=== PATIENT | male | born 1995 | race Caucasian/White ===

== ENCOUNTER 2016-08-24 18:54 | Emergency (ER) | payer BC ==
[2016-08-24 19:25] VITALS: BP 118/56
[2016-08-24] MEDS ORDERED: Tetracaine 0.5% OPTH.SOL 4 ML* 1 DROP BTL ONE (19:41)
[2016-08-24] MEDS ORDERED: BSS OPTH.SOL* BTL ONE (19:41)
[2016-08-24] MEDS ORDERED: Fluorescein Sodium TOPICAL* 1 MG TEST ONE (19:41)
[2016-08-24] MEDS ORDERED: Fluorescein Sodium TOPICAL* 1 MG TEST OPHTHALMIC ONE (19:41)
[2016-08-24] MEDS ORDERED: Tetracaine 0.5% OPTH.SOL 4 ML* 1 DROP BTL LEFT EYE ONE (19:41)
[2016-08-24] MEDS ORDERED: Eye Irrigation Solution 30 ML BOTTLE LEFT EYE ONE (19:42)
--- NOTE | 2016-08-24 20:18 | UC ---
Eye Complaint HPI - HPI Summary HPI Summary: FIVE DAYS AGO WHILE CUTTING [employer] GOT DEBRIS IN LEFT EYE. IRRITATION IN EYE WELL "BUMP" ON (LATERAL SCLERA OF) LEFT EYE. TWO DAYS AGO HAD OUTBREAK OF LESIONS ON LEFT LOWER LIP. - History of Current Complaint Chief Complaint: UCEye Stated Complaint: eye and lip Time Seen by Provider: 08/24/16 19:34 Hx Obtained From: Patient, Family/[employer] Onset/Duration: Gradual Onset, Lasting Days, Still Present Timing: Constant Severity Initially: Moderate Severity Currently: Mild Location of Injury: Conjunctiva, Sclera Character: Dull Aggravating Factor(s): Light, Blinking Alleviating Factor(s): Nothing Associated Signs And Symptoms: Negative: Photophobia, Vision Impairment Bilateral, Vision Impairment Right, Vision Impairment Left, Fever, Swelling - Risk Factors Penetrating Injury Risk Factor: Negative Globe Rupture Risk Factors: Negative Acute Glaucoma Risk Factors: Eye Inflammation, Eye Trauma Optic Artery Occlusion Risk Factors: Negative - Allergies/Home Medications Allergies/Adverse Reactions: Allergies Allergy/AdvReac Type Severity Reaction Status Date / Time No Known Allergies Allergy Verified 08/24/16 19:14 Home Medications: Home Medications Ibuprofen TAB* [Advil TAB*] 800 mg PO Q8H PRN 08/24/16 [History Confirmed ] PMH/Surg Hx/FS Hx/Imm Hx Previously Healthy: Yes Endocrine History Of: Denies: Diabetes, Thyroid Disease Cardiovascular History Of: Denies: Cardiac Disorders, Hypertension Respiratory History Of: Denies: COPD, Asthma GI/ History Of: Denies: Ulcer - Surgical History Surgical History: Yes Surgery Procedure, Year, and Place: dental 01/2016 - Family History Known Family History: Positive: None Negative: Cardiac Disease, Hypertension, Diabetes - Social History Occupation: Employed Full-time Lives: With Family Alcohol Use: None Substance Use Type: None Smoking Status (MU): Never Smoked Tobacco Type: Smokeless Tobacco Amount Used/How Often: 1-2 cans per week Cessation Counseling: Patient Advised to Stop Review of Systems Constitutional: Negative Skin: Rash - VESICULAR RASH ON LEFT LOWER LIP Eyes: Eye Redness ENT: Negative Respiratory: Negative Cardiovascular: Negative Gastrointestinal: Negative Genitourinary: Negative Motor: Negative Neurovascular: Negative Musculoskeletal: Negative Neurological: Negative Psychological: Negative All Other Systems Reviewed And Are Negative: Yes Physical Exam Triage Information Reviewed: Yes Appearance: Well-Appearing Vital Signs: Initial Vital Signs Temp 99.0 F 08/24/16 19:15 Pulse 74 08/24/16 19:15 Resp 16 08/24/16 19:15 BP 118/56 08/24/16 19:15 Pulse Ox 100 08/24/16 19:15 Eyes: Positive: Conjunctiva Inflamed - LEFT, Other: - FLUORESCIEN UPTAKE 2mm X 2mm AREA ON LATERAL SCLERA; ALSO SCANT UPTAKE 3OCLOCK TO 9OCLOCK IN INFERIOR CORNEA ENT Exam: Normal ENT: Positive: Normal ENT inspection, Hearing grossly normal, Pharynx normal, TMs normal Dental Exam: Normal Neck exam: Normal Respiratory Exam: Normal Respiratory: Positive: Chest non-tender, Lungs clear, Normal breath sounds, No respiratory distress Cardiovascular Exam: Normal Cardiovascular: Positive: RRR, No Murmur, Pulses Normal, Brisk Capillary Refill Abdominal Exam: Normal Musculoskeletal Exam: Normal Neurological Exam: Normal Psychological Exam: Normal Psychological: Positive: Normal Response To Family Skin Exam: Normal Eye Complaint Course/Dx - Differential Dx/Diagnosis Differential Diagnosis/HQI/PQRI: Conjunctivitis, Corneal Abrasion, Foreign Body , Keratitis, Other - NODULAR SCLERITIS Provider Diagnoses: LEFT CONJUNCTIVITIS; ORAL HERPES SIMPLEX; LEFT LATERAL SCLERITIS Discharge - Discharge Plan Condition: Stable Disposition: HOME Prescriptions: Erythromycin TOPICAL GEL* [Erythromycin OPTH OINT*] 1 applic TOPICAL TID #1 oint Valacyclovir HCl [Valtrex] 1,000 mg PO BID #12 tab Patient Education Materials: Corneal Abrasion (ED), Oral Herpes Simplex Virus Infections (ED), Conjunctivitis (ED) Referrals: [facility] [Outside] No Primary Care Phys,NOPCP [Primary Care Provider] - Hugo Barnes MD [Medical Doctor] - 4 Days
== END 2016-08-24 20:21 | disposition home or self-care (01) ==
LOC: UCCORT 18:54
DX: H10.9 Unspecified conjunctivitis (principal); B00.1 Herpesviral vesicular dermatitis; H15.092 Other scleritis, left eye; F17.220 Nicotine dependence, chewing tobacco, uncomplicated
CPT/HCPCS: 87529; 99212; A9270-GY; G0463

== ENCOUNTER 2016-09-27 20:42 | Emergency (ER) | payer BC ==
[2016-09-27 21:26] VITALS: BP 129/72
[2016-09-27] MEDS ORDERED: Naproxen TAB* 250 MG PO ONE (21:33)
[2016-09-27] MEDS ORDERED: Tetan/Diph/Pertus SYR(Tdap)* 0.5 ML SYR(BOOSTRIX) use SYR IM ONE (21:33)
--- NOTE | 2016-09-27 21:39 | UC ---
Laceration HPI - HPI Summary HPI Summary: The patient comes in today for: 1. Left elbow pain/laceration Onset: 8 hours ago. Palliative/provocative: Pressing and movement makes it worse. Quality: Ache. Region: Centered over the left elbow laceration. Severity: 9/10 Time: Constant. Associated symptoms: Event: While he was horsing around he threw his arm back and smacked it on the corner of the bed post. Numbness: None. He does not know when his last tetanus vaccine was given. * - History Of Current Complaint Chief Complaint: UCUpperExtremity Stated Complaint: LEFT ELBOW PUNCTURE WOUND Time Seen by Provider: 09/27/16 21:32 Hx Obtained From: Patient, Family/Log Marker - Allergies/Home Medications Allergies/Adverse Reactions: Allergies Allergy/AdvReac Type Severity Reaction Status Date / Time No Known Allergies Allergy Verified 09/27/16 21:26 PMH/Surg Hx/FS Hx/Imm Hx Previously Healthy: Yes - Surgical History Surgical History: Yes Surgery Procedure, Year, and Place: dental 01/2016 - Family History Known Family History: Negative: Cardiac Disease, Hypertension, Diabetes - Social History Occupation: Unemployed Alcohol Use: None Substance Use Type: None Smoking Status (MU): Never Smoked Tobacco Type: Smokeless Tobacco Amount Used/How Often: 1-2 cans per week Length of Time of Smoking/Using Tobacco: 5 YRS Review of Systems Constitutional: Negative Skin: Negative Eyes: Negative ENT: Negative Respiratory: Negative Cardiovascular: Negative Gastrointestinal: Negative Genitourinary: Negative Psychological: Negative All Other Systems Reviewed And Are Negative: Yes Physical Exam Triage Information Reviewed: Yes Appearance: Well-Appearing, No Pain Distress - He states that the pain is a 9/10 , but he is not grimacing or having problems with speech., Well-Nourished Vital Signs: Initial Vital Signs Temp 97.9 F 09/27/16 21:19 Pulse 94 09/27/16 21:19 Resp 24 09/27/16 21:19 BP 129/72 09/27/16 21:19 Pulse Ox 99 09/27/16 21:19 Vital Signs Reviewed: Yes Eyes: Positive: Conjunctiva Clear. Negative: Discharge ENT: Positive: Hearing grossly normal. Negative: Pharyngeal erythema, Nasal congestion, Nasal drainage, TM bulging, TM dull, TM red, Tonsillar swelling, Tonsillar exudate Dental: Negative: Gross Decay/Caries @, Dental Fracture @ Neck: Positive: Supple, Nontender, No Lymphadenopathy. Negative: Nuchal Rigidity Respiratory: Positive: Lungs clear, No respiratory distress, No accessory muscle use. Negative: Crackles, Wheezing Cardiovascular: Positive: RRR, No Murmur Abdomen Description: Positive: No Organomegaly, Soft. Negative: Distended, Guarding Musculoskeletal: Positive: Strength Intact, ROM Intact, No Edema Neurological: Positive: Alert, Muscle Tone Normal Psychological: Positive: Age Appropriate Behavior, Consolable Skin: Positive: Other - The patient has about a 2 cm laceration to the left lateral elbow.. Negative: rashes Laceration Repair - Laceration Repair 1 Description: Linear Laceration Size After Repair: Length (cm) - 1.5, Width (mm) - 5, Depth (mm) - 4 Modified For Repair: No Type Injection: Local Anesthesia Used: 2.0% Lido Additive Used (in ml): Epi Closure Material: Sutures Suture Of: Skin Suture Type: Nylon - Four 4-0 nylon Diagnostics - Radiology No standard instances Xray Interpretation: No Acute Changes - REPORT AND IMPRESSION: Dorsal soft tissue swelling. No conspicuous foreign body or subcutaneous emphysema. Negative for joint effusion, fracture, or malalignment. Radiology Interpretation Completed By: Radiologist Laceration Course/Dx - Differential Dx - Laceration/Wound Differental Diagnoses: Cellulitis, Hematoma, Puncture Wound Provider Diagnoses: laceration to the left elbow. Discharge - Discharge Plan Condition: Stable Disposition: HOME Patient Education Materials: Care For Your Stitches (ED), Laceration (ED) Referrals: No Primary Care Phys,NOPCP [Primary Care Provider] - 2 Weeks (Please be seen in about 12 days to have your sutures removed. If you are not able to have your family provider remove them, we can do it here. ) Additional Instructions: Inspect the wound daily cleaning with hydrogen peroxide and a Q-tip. Inspect for increasing redness, soreness, drainage and swelling. If these get worse, please be seen again for re- evaluation. If you do well, you may return when the sutures need to be taken out. After cleaning and inspecting, please apply Polysporin anti-bacterial ointment and a non-stick dressing until the next day. Apply ice/cold compresses to the area for 20 minutes on, 20 minutes off to keep the swelling down and reduce pain. YOu may use ibuprofen 200 to 800 mg four times a day for pain. Keep the arm elevated as much as you can for the next several days to reduce pain and swelling.
[2016-09-27] MEDS ORDERED: Lidocaine 2% W/EPI 1:100,000* 20 ML MDV INJ ONE (22:04)
--- NOTE | 2016-09-27 22:31 | RAD ---
INDICATION: LEFT elbow laceration, swelling, and painful range of motion following injury. COMPARISON: June 11, 2015 TECHNIQUE: AP, lateral, and oblique views LEFT elbow. REPORT AND IMPRESSION: Dorsal soft tissue swelling. No conspicuous foreign body or subcutaneous emphysema. Negative for joint effusion, fracture, or malalignment.
== END 2016-09-27 23:15 | disposition home or self-care (01) ==
LOC: UCCORT 20:42
DX: Z72.0 Tobacco use (principal); S51.012A Laceration without foreign body of left elbow, initial encounter; W22.09XA Striking against other stationary object, initial encounter; Y93.83 Activity, rough housing and horseplay; Y92.003 Bedroom of unspecified non-institutional (private) residence as the place of occurrence of the external cause; Y99.9 Unspecified external cause status
CPT/HCPCS: 12001; 90471; 90715; 99212; A9270-GY; G0463

== ENCOUNTER 2019-03-19 09:11 | Emergency (ER) | payer BC ==
[2019-03-19 09:48] VITALS: BP 109/67
[2019-03-19 10:43] LABS: Influenza B Molecular POSITIVE (Negative)
--- NOTE | 2019-03-19 10:57 | UC ---
Respiratory Complaint HPI - HPI Summary HPI Summary: 23 yo male with sore throat/cough/nasal congestion/headache/myalgias and n/v x 4 days fever/chills no cp or sob - History of Current Complaint Chief Complaint: UCRespiratory Stated Complaint: VOMITING/HOT COLD FLASHES/COUGH/ST Time Seen by Provider: 03/19/19 10:15 Hx Obtained From: Patient Onset/Duration: Gradual Onset, Lasting Days Timing: Constant Severity Initially: Mild Severity Currently: Moderate Pain Intensity: 6 Pain Scale Used: 0-10 Numeric Character: Cough: Nonproductive Aggravating Factors: Nothing Alleviating Factors: Nothing Associated Signs And Symptoms: Positive: Fever, Chills, Nasal Congestion - Allergies/Home Medications Allergies/Adverse Reactions: Allergies Allergy/AdvReac Type Severity Reaction Status Date / Time No Known Allergies Allergy Verified 03/19/19 09:34 Home Medications: Home Medications Acetaminophen [APAP] 650 mg PO Q6H 03/19/19 [History Confirmed 03/19/19] D-Methorphan/PE/Acetaminophen [Vicks Dayquil Liquicaps] 2 each PO Q6H PRN [History Confirmed 03/19/19] Dm/Acetaminophen/Doxylamine [Vicks Nyquil Liquicaps] 2 each PO QPM PRN 03/19/19 [History Confirmed 03/19/19] PMH/Surg Hx/FS Hx/Imm Hx Previously Healthy: Yes - Surgical History Surgical History: Yes Surgery Procedure, Year, and Place: dental 01/2016 - Family History Known Family History: Positive: None Negative: Cardiac Disease, Hypertension, Diabetes - Social History Alcohol Use: Occasionally Substance Use Type: None Smoking Status (MU): Current Some Day Smoker Type: Cigarettes Amount Used/How Often: 1-2 cans per week Length of Time of Smoking/Using Tobacco: 5 YRS Review of Systems All Other Systems Reviewed And Are Negative: Yes Constitutional: Positive: Fever, Chills, Fatigue Skin: Positive: Negative Eyes: Positive: Negative ENT: Positive: Sore Throat, Nasal Discharge, Sinus Congestion, Sinus Pain/ Tenderness Respiratory: Positive: Cough Cardiovascular: Positive: Negative Gastrointestinal: Positive: Vomiting, Nausea Genitourinary: Positive: Negative Motor: Positive: Negative Neurovascular: Positive: Negative Musculoskeletal: Positive: Negative Neurological: Positive: Negative Psychological: Positive: Negative Physical Exam Triage Information Reviewed: Yes Appearance: Well-Appearing, No Pain Distress Vital Signs: Initial Vital Signs Temp 98 F 03/19/19 09:39 Pulse 64 03/19/19 09:39 Resp 18 03/19/19 09:39 BP 109/67 03/19/19 09:39 Pulse Ox 100 03/19/19 09:39 Vital Signs Reviewed: Yes Eyes: Positive: Conjunctiva Clear ENT: Positive: Hearing grossly normal, Pharyngeal erythema, Nasal congestion, Nasal drainage, TMs normal, Sinus tenderness, Uvula midline. Negative: Tonsillar swelling, Tonsillar exudate, Trismus, Hoarse voice Dental Exam: Normal Neck: Positive: Supple, Nontender, No Lymphadenopathy Respiratory: Positive: Lungs clear, Normal breath sounds, No respiratory distress, No accessory muscle use Cardiovascular: Positive: RRR Abdomen Description: Positive: Nontender, No Organomegaly Musculoskeletal: Positive: ROM Intact, No Edema Neurological: Positive: Alert Psychological Exam: Normal Skin Exam: Normal Diagnostics - Laboratory Lab Results: flu B (+) strep (-) Respiratory Course/Dx - Differential Dx/Diagnosis Provider Diagnosis: Influenza B Discharge ED - Sign-Out/Discharge Documenting (check all that apply): Patient Departure All imaging exams completed and their final reports reviewed: No Studies - Discharge Plan Condition: Stable Disposition: HOME Prescriptions: Ondansetron TAB* [Zofran Tab*] 4 mg PO Q6H PRN #8 tab PRN Reason: Nausea Patient Education Materials: Influenza (ED) Forms: *Work Release Referrals: No Primary Care Phys,NOPCP [Primary Care Provider] - - Billing Disposition and Condition Condition: STABLE Disposition: Home
== END 2019-03-19 11:05 | disposition home or self-care (01) ==
LOC: UCCORT 09:11
DX: J11.1 Influenza due to unidentified influenza virus with other respiratory manifestations (principal); F17.210 Nicotine dependence, cigarettes, uncomplicated; R53.83 Other fatigue; R11.2 Nausea with vomiting, unspecified
CPT/HCPCS: 87651; 99212; G0463

== ENCOUNTER 2019-04-07 13:43 | Emergency (ER) | payer BC ==
[2019-04-07 14:10] VITALS: BP 123/72
--- NOTE | 2019-04-07 14:10 | UC ---
Hand/Wrist HPI - HPI Summary HPI Summary: right thumb pain x 2 hrs pain is 7 out of 10 , worse with movement / touch better with splint, ice, rest s/p fall snowboarding injury to his right thumb - History Of Current Complaint Stated Complaint: R THUMB INJ Time Seen by Provider: 04/07/19 14:04 Hx Obtained From: Patient Onset/Duration: Sudden Onset, Lasting Hours - 2, Still Present Severity Initially: Severe Severity Currently: Severe Character Of Pain: Aching, Throbbing Aggravating Factor(s): Movement, Flexion, Extension, Abduction, Adduction, Twisting, Pulling Alleviating Factor(s): Rest, Ice Associated Signs And Symptoms: Positive: Swelling, Weakness. Negative: Redness , Bruising, Fever, Numbness/Tingling - Allergies/Home Medications Allergies/Adverse Reactions: Allergies Allergy/AdvReac Type Severity Reaction Status Date / Time No Known Allergies Allergy Verified 04/07/19 14:11 Home Medications: Home Medications NK [No Home Medications Reported] 04/07/19 [History Confirmed 04/07/19] PMH/Surg Hx/FS Hx/Imm Hx Previously Healthy: Yes - Surgical History Surgical History: Yes Surgery Procedure, Year, and Place: dental 01/2016 - Family History Known Family History: Positive: None Negative: Cardiac Disease, Hypertension, Diabetes - Social History Alcohol Use: Occasionally Substance Use Type: None Smoking Status (MU): Current Some Day Smoker Type: Cigarettes Amount Used/How Often: 1-2 cans per week Length of Time of Smoking/Using Tobacco: 5 YRS Review of Systems All Other Systems Reviewed And Are Negative: Yes Is Patient Immunocompromised?: No Physical Exam Triage Information Reviewed: Yes Appearance: Well-Appearing, No Pain Distress, Well-Nourished Vital Signs Reviewed: Yes Eye Exam: Normal ENT: Positive: Normal ENT inspection, Hearing grossly normal, Pharynx normal Neck: Positive: Supple Respiratory: Positive: Chest non-tender, Lungs clear, Normal breath sounds Cardiovascular: Positive: RRR, No Murmur, Pulses Normal Diagnostics - Radiology No standard instances Radiology Interpretation Completed By: Radiologist Summary of Radiographic Findings: right thumb xray: Fracture /dislocation base of right thumb Hand/Wrist Course/Dx - Differential Dx/Diagnosis Provider Diagnosis: Fracture of thumb, right, closed, Dislocation of right thumb Discharge ED - Sign-Out/Discharge Documenting (check all that apply): Patient Departure All imaging exams completed and their final reports reviewed: Yes - Discharge Plan Condition: Stable Disposition: HOME Patient Education Materials: Finger Fracture (ED), Finger Dislocation (ED) Referrals: No Primary Care Phys,NOPCP [Primary Care Provider] - Additional Instructions: fracture / dislocation of right thumb please go to [facility] ED for evaluation and tx - Billing Disposition and Condition Condition: STABLE Disposition: Home
[2019-04-07] MEDS ORDERED: Ibuprofen TAB* 600 MG PO ONE (14:12)
== END 2019-04-07 14:49 | disposition home or self-care (01) ==
LOC: UCCORT 13:43
DX: S62.501A Fracture of unspecified phalanx of right thumb, initial encounter for closed fracture (principal); S63.104A Unspecified dislocation of right thumb, initial encounter; V00.311A Fall from snowboard, initial encounter; Y93.23 Activity, snow (alpine) (downhill) skiing, snowboarding, sledding, tobogganing and snow tubing; Y92.9 Unspecified place or not applicable; F17.210 Nicotine dependence, cigarettes, uncomplicated
CPT/HCPCS: 99212; A9270-GY; G0463